=== PATIENT | female | born 1955 | race Hispanic/Latino ===

== ENCOUNTER 2017-04-05 06:46 | Emergency (ER) | payer MEDICARE ==
[2017-04-05] MEDS ORDERED: NACL 0.9% 1000 ML 1,000 ML ONE (06:56)
[2017-04-05] MEDS ORDERED: NACL 0.9% 1000 ML 1,000 ML IV ONE (07:03)
--- NOTE | 2017-04-05 07:07 | Emergency Department Report ---
ED CPR HPI - General Stated Complaint: CARDIAC ARREST Time Seen by Provider: 04/05/17 07:02 Source: EMS - History of Present Illness Initial Comments: Patient is 61 years old female with past medical history of COPD and lupus. History was taken from the patient who presented with the EMS. stated that patient has been sick for the last 2-3 days with upper respiratory symptoms and cough and shortness of breath, he stated that patient went to the bathroom and he heard that she fell, this is when he called the EMS. EMS when arrived stated that patient was not breathing and her initial rhythm showed asystole, patient was immediately intubated at the scene and CPR started and patient received 3 epi by EMS 1 bicarbonate. Patient able to get her pulse back. When arrived to the ER she is tachycardic with faint pulse and low blood pressure. ET tube placement confirmed with good breath sounds on both sides and oxygen saturation of 100%. A few minutes later patient lost her pulse again and ACLS protocol was started. A right femoral triple lumen central line was placed by me. Patient coded several times in the ER. Please refer to code sheets for further information. kept informed about patient condition. Complaint: collapsed during rest Place: home Bystander CPR Performed: No AED Applied by Bystander/Collector Of Port: Yes Shock Advised: No Initial Findings in the Field: no pulse, systole ROSC in the Field: No Associated Injuries: No Treatments Prior to Arrival: intubation, chest compressions, epinephrine mgs # ( 2 mg), sodium bicarbonate (1 ampule) - Related Data Allergies Allergy/AdvReac Type Severity Reaction Status Date / Time No Known Allergies Allergy Unverified 04/05/17 07:29 ED Review of Systems ROS: Stated complaint: CARDIAC ARREST Other details as noted in HPI Comment: Unobtainable due to pts medical conditions ED Physical Exam - General Limitations: Altered Mental Status, Physical Limitation General appearance: other (intubated) - Head Head exam: Present: atraumatic, normocephalic - Eye Eye exam: Present: normal appearance Pupils: Present: other (4 mm bilaterally, very sluggish) - ENT ENT exam: Present: mucous membranes dry - Respiratory Respiratory exam: Present: other (intubated, no spontaneous breathing) - Cardiovascular Cardiovascular Exam: Present: tachycardia - GI/Abdominal GI/Abdominal exam: Present: soft, distended - Extremities Exam Extremities exam: Present: normal inspection - Back Exam Back exam: Present: normal inspection, CVA tenderness (R) ED Course Vital Signs 04/05/17 04/05/17 04/05/17 07:05 07:24 07:30 Temperature 97.1 F L Pulse Rate 120 H 0 L Respiratory 16 Rate Blood Pressure 73/30 O2 Sat by Pulse 99 100 Oximetry 04/05/17 04/05/17 04/05/17 07:46 08:00 08:16 Temperature Pulse Rate 127 H 128 H 121 H Respiratory 18 82 H 12 Rate Blood Pressure 102/50 O2 Sat by Pulse 100 Oximetry 04/05/17 04/05/17 04/05/17 08:30 08:46 09:00 Temperature Pulse Rate 123 H 124 H 125 H Respiratory 18 18 14 Rate Blood Pressure 74/46 58/21 130/98 O2 Sat by Pulse 100 Oximetry 04/05/17 04/05/17 04/05/17 09:15 09:30 09:46 Temperature Pulse Rate 126 H 126 H 124 H Respiratory 18 18 18 Rate Blood Pressure 58/38 89/59 79/38 O2 Sat by Pulse 100 100 100 Oximetry 04/05/17 04/05/17 04/05/17 10:00 10:16 10:30 Temperature Pulse Rate 123 H 121 H 118 H Respiratory 17 18 18 Rate Blood Pressure 79/38 93/71 69/53 O2 Sat by Pulse 100 96 Oximetry 04/05/17 04/05/17 04/05/17 10:46 11:00 11:16 Temperature Pulse Rate 117 H 107 H 105 H Respiratory 18 18 18 Rate Blood Pressure 69/53 64/37 64/37 O2 Sat by Pulse 100 88 Oximetry 04/05/17 04/05/17 04/05/17 11:30 11:46 12:00 Temperature Pulse Rate 103 H 98 H 96 H Respiratory 18 18 18 Rate Blood Pressure 64/37 41/25 41/25 O2 Sat by Pulse Oximetry 04/05/17 04/05/17 12:16 12:30 Temperature Pulse Rate Respiratory 18 Rate Blood Pressure 41/25 41/25 O2 Sat by Pulse Oximetry - Reevaluation(s) Reevaluation #1: 04/05/17 08:28 Please refer to code sheet for further information. Reevaluation #2: 04/05/17 09:25 I discuss with the patient Mr. Junito Leiva, I informed him about her condition. Mr. Leiva stated that his told him that if she needed to be on life support she does not want that. There is no written DO NOT RESUSCITATE. Patient stated that he does not want his to be on life support and he asked me to stop the resuscitation if she lost her pulse again. Mr. Leiva checked into the ER with the same symptoms but he is alert, oriented 3 able to make a sound decision. Reevaluation #3: 04/05/17 12:23 Patient has been signed DO NOT RESUSCITATE form. Patient pronounced at 12: 17 PM the present at bedside. - Central Line Placement Right Femoral Consent Obtained: emergent situation Time Out Performed: Yes Patient Placed on Monitor/Pulse Ox: Yes MD Prep: mask, gown, gloves Central Line Prep: Chlorhexidine scrub, sterile drapes applied Local Anesthesia Used: Lidocaine 2% Amount of Anesthesia Used (mls): 5 Ultrasound Used for Placement: No Central Line Lumen Inserted: triple Bloods Obtained for Lab: Yes Central Line Position: good blood return, all ports aspirated, flus, sutured in place with 2-0 Dressing Applied: Tegaderm, sterile gauze/tape Patient Tolerated Procedure: well, no complications Complications: none ED Medical Decision Making - Lab Data Result diagrams: 04/05/17 07:08 04/05/17 07:13 - EKG Data -: EKG Interpreted by Me Rate: tachycardia - EKG Data Interpretation: no acute changes - Radiology Data Radiology results: report reviewed Referring Physician: FUNMILAYO PRABHAKAR Patient Name: LEONARDO LEIVA Date of : 1955 Sex: Female Report Date: 2017-04-05 Report Status: Finalized Findings [facility] [address] [place] [address] XRay Report Signed Patient: LEONARDO LEIVA MR#: [id number] : 1955 Acct:[id number] Age/Sex: 61 / F ADM Date: 04/05/17 Loc: ED Attending Dr: Ordering Physician: FUNMILAYO PRABHAKAR Date of Service: 04/05/17 Procedure(s): XR chest 1V ap Accession Number(s): [id number] cc: FUNMILAYO [place] Time In Minutes: FINAL REPORT PROCEDURE: XR CHEST 1V AP TECHNIQUE: Chest radiograph anteroposterior view. CPT 22440 HISTORY: Altered Mental Status COMPARISON: None FINDINGS: Endotracheal tube is in place, tube tip at the inferior clavicular head level. The trachea is midline. The heart is normal in size. There is central vascular congestion and mild increased alveolar interstitial markings bilaterally. There is no evident pneumothorax or pleural fluid. The thoracic cage is intact. IMPRESSION: Endotracheal tube in good position. Central vascular congestion. Mild pulmonary edema and or bilateral pneumonia not excluded. Transcribed By: KEVON Dictated By: LENCHO RANDALL MD Electronically Authenticated By: LENCHO RANDALL MD Signed Date/Time: 04/05/17455 DD/ 5 TD/TT: 04/05/17455 - Medical Decision Making Discussed with Dr. hernandez, I presented the patient to him, he stated he will see the patient. Critical Care Time: Yes Critical care time in (mins) excluding proc time.: 135 Critical care attestation.: If time is entered above; I have spent that time in minutes in the direct care of this critically ill patient, excluding procedure time. ED Disposition Clinical Impression: Respiratory arrest, Pneumonia of both lower lobes, Septic shock Disposition: DC-20 Is pt being admited?: Yes Condition: Stable Instructions: Bacterial Pneumonia (ED) Referrals: LUIS ANGEL [facility]KE MD [Primary Care Provider] - 3-5 Days
[2017-04-05] MEDS ORDERED: NACL 0.9% 1000 ML 2,000 ML IV ONE (07:15)
[2017-04-05] MEDS ORDERED: LEVOPHED DRIP 4 MG/NS 250 ML 4 MG/250 ML BAG IV SCH (07:15)
[2017-04-05] MEDS ORDERED: LEVOPHED DRIP 4 MG/NS 250 ML 4 MG/250 ML BAG IV ONE (07:28)
[2017-04-05] MEDS ORDERED: INTROPIN DRIP 800 MG/D5W 250 ML 800 MG/250 ML BAG IV ONE (07:29)
[2017-04-05 07:43] LABS: Hematocrit 36.9 % (30.3-42.9); Hemoglobin 11.6 gm/dl (10.1-14.3); Mean Corpuscular HGB Conc 31 % (30-34); Mean Corpuscular Hemoglobin 31 pg (28-32); Mean Corpuscular Volume 99 fl (79-97); Red Blood Count 3.72 M/mm3 (3.65-5.03); Red Cell Distribution Width 14.8 % (13.2-15.2)
[2017-04-05 07:48] LABS: Albumin 2.5 g/dL (3.9-5); Calcium 7.9 mg/dL (8.4-10.2)
[2017-04-05 08:34] LABS: Chol/HDL Ratio 3.18 %
--- NOTE | 2017-04-05 08:59 | XRay Report ---
FINAL REPORT PROCEDURE: XR CHEST 1V AP TECHNIQUE: Chest radiograph anteroposterior view. CPT 07844 HISTORY: Altered Mental Status COMPARISON: None FINDINGS: Endotracheal tube is in place, tube tip at the inferior clavicular head level. The trachea is midline. The heart is normal in size. There is central vascular congestion and mild increased alveolar interstitial markings bilaterally. There is no evident pneumothorax or pleural fluid. The thoracic cage is intact. IMPRESSION: Endotracheal tube in good position. Central vascular congestion. Mild pulmonary edema and or bilateral pneumonia not excluded.
[2017-04-05] MEDS ORDERED: Vasostrict 20 UNIT in NACL 0.9% 100 ML IV SCH (09:00)
[2017-04-05 09:11] LABS: Bacteria,Urine 1+ /HPF (Negative); Bilirubin,Urine NEG (Negative); Blood,Urine MOD (Negative); Color,Urine Amber (Yellow); Mucus,Urine FEW /HPF; Nitrite,Urine NEG (Negative); Urobilinogen,Urine < 2.0 mg/dL (<2.0)
[2017-04-05 09:12] LABS: Protein,Urine >500 mg/dL (Negative)
[2017-04-05] MEDS ORDERED: VANCOMYCIN/NS 1 GM/250 ML 1 GM/250 ML BAG IV ONE (10:06)
[2017-04-05 11:09] LABS: Anisocytosis 1+; Band Neutrophils # (Manual) 0.1 K/mm3; Eosinophils % (Manual) 0 % (0.0-4.3); Platelet Estimate Consistent w Auto; Total Cells Counted 100
[2017-04-05] MEDS ORDERED: ZOSYN/NS 3.375GM/50ML 3.375 GM/50 ML BAG IV SCH (12:00)
[2017-04-05 12:10] VITALS: BP 41/25
== END 2017-04-05 16:51 ==
LOC: ED 06:46
DX: A41.9 Sepsis, unspecified organism (principal); R65.21 Severe sepsis with septic shock; J18.9 Pneumonia, unspecified organism; I46.9 Cardiac arrest, cause unspecified; R06.89 Other abnormalities of breathing
CPT/HCPCS: 36415; 36556; 71045; 80053; 80061; 81001; 82140; 84484; 85007; 85025; 92950; 93005; 93010; 96365; 96366; 96368; 96375; 99291; 99292; J2543; J2930; J3370; J7030; J1265